=== PATIENT | female | born 1985 | race Caucasian/White ===

== ENCOUNTER 2023-10-20 15:02 | Inpatient (IN) ==
--- NOTE | 2023-10-20 15:30 | Emergency Department Note ---
Impression & Plan Pneumonia, Mycoplasma infection, Rhinovirus infection, Dehydration ED Provider Note NAME: HUMPHREY RICHEY AGE: 38 SEX: F : 1985 ARRIVES VIA: Walk-In INFORMANT: Patient ED PROVIDER(S): Memo Alexandra MD CHIEF COMPLAINT: Feverish, cough, chest pain, shortness of breath. PLAN: Disposition: Admit MEDICAL DECISION MAKING: The patient is a pleasant 38-year-old woman who presents to the emergency department via walk-in accompanied by her for evaluation of ongoing cough, congestion shortness of breath where she had an outpatient chest x-ray performed today demonstrating left lower lobe pneumonia in the setting of having upper respiratory symptoms that began approximately 10 days ago where she was subsequently seen at [facility] and treated with Augmentin but due to feeling continued cough, congestion and shortness of breath and feverishness returned today and had outpatient x-ray demonstrating pneumonia. Patient reports that before she was able to hear back about the results she felt she needed additional help in presented for evaluation. She reports some nausea but denies vomiting other than attempts to relieve her nausea by attempting to make herself vomit. She reports diarrhea that began after starting her antibiotic. She denies smoking but does vape regularly but has not done this for the past week. Patient and her are visiting [employer] from their home in [place] and was scheduled to fly home this weekend. On evaluation the patient is uncomfortable, with temperature of 37.6, heart rate in the 100s and blood pressure 90s-110s/40s-60s. O2 saturation was 93% on room air and greater. She appears clinically dry. She has boggy nasal turbinates. She has wheezes and rhonchi of the left lower and posterior lung stephens. EKG without overt acute ischemia. WBC within normal limits. There is mild neutrophilia and mild lymphopenia. There is no left shift. H/H 11.3/33.5 without prior for comparison. Chemistry without metabolic acidosis. Potassium 3.3 electrolytes otherwise unremarkable. LFTs unremarkable. High-sensitivity troponin 3.5, within normal limits. Lipase is normal. Procalcitonin is not elevated. UA without evidence of infection. Trace ketones noted consistent with patient's clinically dry appearance. Respiratory BioFire was positive for both enterovirus/rhinovirus as well as Mycoplasma pneumoniae. D-dimer was elevated at 1000 and so CTA of the chest was performed. CTA of the chest was negative for PE or acute aortic pathology. Further characterization of the patient's pneumonia is described with consolidations and reticular nodular densities in the left lower lobe and lingula consistent with pneumonia. Trace pleural effusion is seen. Upon evaluation the patient did feel improved following IV fluid ration with 2L NSS and 1L LR for total of 3 L IV fluid hydration (>30cc/kg), IV APAP, Toradol, Solu-Medrol, DuoNeb, guaifenesin, nasal saline. Heart rate had improved as well as blood pressure. Given the extent of the patient's lobar pneumonia in the setting of confirmed infection with mycoplasma pneumonia a the patient does agree with plan for admission for further management. Treatment was initiated for CAP with IV ceftriaxone and IV azithromycin following blood cultures. [facility] the patient for [facility]. Further management per admitting team. Triage Nursing notes reviewed and agree them. Prior/external medical records reviewed Vital Signs: reviewed Differential diagnosis: Reactive airway disease, pneumonia, pneumothorax, COPD, CHF, infections, cardiac ischemia, pulmonary embolism, musculoskeletal, gastrointestinal, as well as other pathologies. ER treatment provided: See below. Diagnostics interpreted by me: ECG: Sinus tachycardia, 111 bpm, no ectopy, no overt ST elevation or depression, QTc 416, QRS 76. Cardiac Monitoring: An order for continuous cardiac monitoring was placed and demonstrated sinus tachycardia, 111 bpm, no ectopy. Laboratory studies: See below Imaging studies: See below Consultation(s): [facility] will [facility] the patient for admission. HPI: The patient is a pleasant 38-year-old woman who presents to the emergency department via walk-in accompanied by her for evaluation of ongoing cough, congestion shortness of breath where she had an outpatient chest x-ray performed today demonstrating left lower lobe pneumonia in the setting of having upper respiratory symptoms that began approximately 10 days ago where she was subsequently seen at [facility] and treated with Augmentin but due to feeling continued cough, congestion and shortness of breath and feverishness returned today and had outpatient x-ray demonstrating pneumonia. Patient reports that before she was able to hear back about the results she felt she needed additional help in presented for evaluation. She reports some nausea but denies vomiting other than attempts to relieve her nausea by attempting to make herself vomit. She reports diarrhea that began after starting her antibiotic. She denies smoking but does vape regularly but has not done this for the past week. Patient and her are visiting [employer] from their home in [place] and was scheduled to fly home this weekend. ROS: See above HPI for pertinent positives & negatives. A total of 10 systems reviewed and were otherwise negative. VITALS:See Below PHYSICAL EXAMINATION: GENERAL: Awake, alert, uncomfortable-appearing, in no distress HENT: Normocephalic, atraumatic. Boggy nasal turbinates. Oropharynx with dry mucous membranes and otherwise unremarkable. EYES: Normal conjunctiva. Sclera non-icteric. NECK: Supple. No nuchal rigidity. FROM. No JVD. RESPIRATORY: Wheezes and rhonchi of the left lower and posterior lung stephens. CARDIAC: Tachycardic rate, normal rhythm. Extremities warm and well perfused. Pulses equal. ABDOMEN: Soft, non-distended. No tenderness to palpation. No rebound or guarding. No masses. MUSCULOSKELETAL: Chest examination reveals no tenderness. The back is symmetrical on inspection without obvious abnormality. There is no CVA tenderness to palpation. No joint edema. LOWER EXTREMITIES: Calves are equal size bilaterally and non-tender. No edema. No discoloration. NEURO: Normal sensorium. No sensory or motor deficits noted. SKIN: No rash or jaundice noted. ED COURSE: Critical Care: I have personally spent greater than 35 minutes of critical care time in the direct management of this patient. This includes bedside care, interpretation of diagnostic studies, and testing, discussion with consultants, patient, and family members, and other required patient management activities. This 35 minutes is in excess of all separately billable procedures. Memo Alexandra MD Past Med/Surg History Problem List (Updated 10/20/23 @ 22:23 by Memo Alexandra MD) Dehydration (Acute) Rhinovirus infection (Acute) Mycoplasma infection (Acute) Pneumonia (Acute) Social History (Updated 10/16/23 @ 11:11 by Bella Serrano LPN) Smoking Status: Former smoker Tobacco Type: E-cigarettes / Vaping Feels Safe at Home: Yes Allergies Allergies Allergy/AdvReac Type Severity Reaction Status Date / Time No Known Allergies Allergy Verified 10/16/23 11:10 Home Meds Home Medications Medication Instructions Recorded Confirmed sertraline 25 mg tablet (Zoloft) 25 mg PO DAILY 10/16/23 10/16/23 Previous Rx's Medication Instructions Recorded amoxicillin 875 mg-potassium 1 tab PO BID #20 tabs 10/16/23 clavulanate 125 mg tablet azithromycin 250 mg tablet See Rx Instructions PO .COMPLEX #6 10/20/23 tabs Results & Data (ED) Vital Signs Vital Signs - 24 hr 10/20/23 15:07 10/20/23 16:23 10/20/23 16:45 Temperature 37.6 C H 39.3 C H Temperature Source Temporal Artery Scan Oral Pulse Rate 117 H 117 H Pulse Rate [Apical] 109 H Pulse Rhythm [Apical] Regular Pulse Strength [Apical] Respiratory Rate 18 20 Respiratory Effort / Characteristics Non-Labored Respiratory Depth Normal Normal Respiratory Pattern Regular Blood Pressure 114/73 Blood Pressure [Left Arm] 105/49 L Blood Pressure Mean 86 Blood Pressure Mean [Left Arm] 67 Pulse Oximetry 93 96 Oxygen Delivery Method Room Air Room Air Sepsis Recent Fever Within 48 Hours No Sepsis New/Unexplained Change in Mental Status N/A Sepsis Action Taken by Nursing No Action Required 10/20/23 17:12 10/20/23 18:05 10/20/23 19:01 Temperature 38.4 C H 37.6 C H Temperature Source Oral Oral Pulse Rate Pulse Rate [Apical] 105 H 98 H 94 H Pulse Rhythm [Apical] Regular Regular Regular Pulse Strength [Apical] Respiratory Rate 20 18 18 Respiratory Effort / Characteristics Non-Labored Respiratory Depth Normal Normal Normal Respiratory Pattern Blood Pressure Blood Pressure [Left Arm] 88/47 L 83/62 L 91/64 L Blood Pressure Mean Blood Pressure Mean [Left Arm] 60 69 73 Pulse Oximetry 94 93 95 Oxygen Delivery Method Room Air Room Air Sepsis Recent Fever Within 48 Hours Sepsis New/Unexplained Change in Mental Status Sepsis Action Taken by Nursing 10/20/23 19:46 10/20/23 20:15 10/20/23 20:40 Temperature 37.0 C Temperature Source Oral Pulse Rate 79 Pulse Rate [Apical] 84 81 Pulse Rhythm [Apical] Regular Regular Pulse Strength [Apical] Normal Respiratory Rate 18 18 Respiratory Effort / Characteristics Non-Labored Non-Labored Respiratory Depth Normal Normal Respiratory Pattern Blood Pressure Blood Pressure [Left Arm] 103/69 95/60 L Blood Pressure Mean Blood Pressure Mean [Left Arm] 80 71 Pulse Oximetry 96 95 Oxygen Delivery Method Room Air Sepsis Recent Fever Within 48 Hours Sepsis New/Unexplained Change in Mental Status Sepsis Action Taken by Nursing Laboratory Data 10/20/23 15:51 10/20/23 15:51 Lab Results 10/20/23 10/20/23 10/20/23 Range/Units 15:41 15:51 17:05 WBC 8.36 (4.8-10.8) K/ul RBC 3.89 L (4.20-5.40) M/uL Hgb 11.3 L (12.0-16.0) g/dl Hct 33.5 L (37.0-47.0) % MCV 86.1 (80.0-100.0) fL MCH 29.0 (25.0-34.0) pg MCHC 33.7 (32.0-36.0) g/dL RDW Std Deviation 38.7 (36.4-46.3) fL RDW Coeff of Mary 12.3 (11.5-14.5) % Plt Count 315 (130-400) K/uL MPV 9.4 (9.4-12.4) fL Immature Gran % (Auto) 0.4 % Neut % (Auto) 80.9 % Lymph % (Auto) 12.1 % [place] % (Auto) 6.3 % Eos % (Auto) 0.1 % Baso % (Auto) 0.2 % Neut # (Auto) 6.76 H (1.40-6.50) K/uL Lymph # (Auto) 1.01 L (1.20-3.40) K/uL [place] # (Auto) 0.53 (0.11-0.59) K/uL Eos # (Auto) 0.01 (0.00-0.50) K/uL Baso # (Auto) 0.02 (0.00-0.20) K/uL Immature Gran # (Auto) 0.03 (0.01-0.20) K/uL D-Dimer 1010 H* (0-500) ug/L FEU Sodium 136 (136-145) mmol/L Potassium 3.3 L (3.5-5.1) mmol/L Chloride 99 (98-107) mmol/L Carbon Dioxide 27 (21-32) mmol/L Anion Gap 10 (3-11) BUN 15 (6-23) mg/dl Creatinine 0.74 (0.6-1.2) mg/dl Est Cr Clr Drug Dosing 101.4 ml/min Est GFR ( Amer) 120.0 ml/min Est GFR (Non-Af Amer) 103.5 ml/min BUN/Creatinine Ratio 20.3 H (10-20) Glucose 95 (70-99(Fasting)) mg/dl Lactate 1.0 (0.4-2.0) mmol/L Calcium 8.7 (8.6-10.3) mg/dl Magnesium 2.1 (1.7-2.4) mg/dl Total Bilirubin 0.5 (0.2-1.0) mg/dl Direct Bilirubin 0.1 (0-0.2) mg/dl AST 15 (13-39) U/L ALT 16 (7-52) U/L Alkaline Phosphatase 38 (34-104) U/L Troponin I High Sens 3.5 (0-14) pg/ml Total Protein 7.5 (6.0-8.3) gm/dl Albumin 4.0 (3.4-5.0) gm/dl Lipase 44 (11-82) U/L Procalcitonin 0.05 (0-0.5) ng/ml Urine Color Yellow Urine Appearance Cloudy A (Clear) Urine pH 6.0 (4.5-7.5) Ur Specific [place] 1.021 (1.000-1.030) Urine Protein 1+ H (Negative) Urine Glucose (UA) Negative (Negative) Urine Ketones Trace H (Negative) Urine Blood Negative (Negative) Urine Nitrite Negative (Negative) Urine Bilirubin Negative (Negative) Urine Urobilinogen Negative (Negative) Ur Leukocyte Esterase Trace H (Negative) Urine WBC (Auto) 0-5 (0-5) /hpf Urine RBC (Auto) 3-5 H (0-2) /hpf U Hyaline Cast (Auto) 0-2 (0-2) /lpf U Epithel Cells (Auto) 11-20 H (0-2) /hpf Urine Bacteria (Auto) None Seen (None Seen) Nasal Screen MRSA (PCR) (Negative) Adenovirus (PCR) Not Detected (NotDetected) B. pertussis DNA (PCR) Not Detected (NotDetected) B.parapertussis DNA PCR Not Detected (NotDetected) C. pneumoniae DNA (PCR) Not Detected (NotDetected) Coronavirus OC43 (PCR) Not Detected (NotDetected) Coronavirus HKU1 (PCR) Not Detected (NotDetected) Coronavirus 229E (PCR) Not Detected (NotDetected) SARS-CoV-2 (PCR) Not Detected (NotDetected) Coronavirus NL63 (PCR) Not Detected (NotDetected) Human Metapneumovir PCR Not Detected (NotDetected) Influenza Type A (PCR) Not Detected (NotDetected) Influenza Type B (PCR) Not Detected (NotDetected) M. pneumoniae (PCR) DETECTED A (NotDetected) Parainfluenza 1 (PCR) Not Detected (NotDetected) Parainfluenza 2 (PCR) Not Detected (NotDetected) Parainfluenza 3 (PCR) Not Detected (NotDetected) Parainfluenza 4 (PCR) Not Detected (NotDetected) RSV (PCR) Not Detected (NotDetected) Entero/Rhino (PCR) DETECTED A (NotDetected) 10/20/23 Range/Units 20:15 WBC (4.8-10.8) K/ul RBC (4.20-5.40) M/uL Hgb (12.0-16.0) g/dl Hct (37.0-47.0) % MCV (80.0-100.0) fL MCH (25.0-34.0) pg MCHC (32.0-36.0) g/dL RDW Std Deviation (36.4-46.3) fL RDW Coeff of Mary (11.5-14.5) % Plt Count (130-400) K/uL MPV (9.4-12.4) fL Immature Gran % (Auto) % Neut % (Auto) % Lymph % (Auto) % [place] % (Auto) % Eos % (Auto) % Baso % (Auto) % Neut # (Auto) (1.40-6.50) K/uL Lymph # (Auto) (1.20-3.40) K/uL [place] # (Auto) (0.11-0.59) K/uL Eos # (Auto) (0.00-0.50) K/uL Baso # (Auto) (0.00-0.20) K/uL Immature Gran # (Auto) (0.01-0.20) K/uL D-Dimer (0-500) ug/L FEU Sodium (136-145) mmol/L Potassium (3.5-5.1) mmol/L Chloride (98-107) mmol/L Carbon Dioxide (21-32) mmol/L Anion Gap (3-11) BUN (6-23) mg/dl Creatinine (0.6-1.2) mg/dl Est Cr Clr Drug Dosing ml/min Est GFR ( Amer) ml/min Est GFR (Non-Af Amer) ml/min BUN/Creatinine Ratio (10-20) Glucose (70-99(Fasting)) mg/dl Lactate (0.4-2.0) mmol/L Calcium (8.6-10.3) mg/dl Magnesium (1.7-2.4) mg/dl Total Bilirubin (0.2-1.0) mg/dl Direct Bilirubin (0-0.2) mg/dl AST (13-39) U/L ALT (7-52) U/L Alkaline Phosphatase (34-104) U/L Troponin I High Sens (0-14) pg/ml Total Protein (6.0-8.3) gm/dl Albumin (3.4-5.0) gm/dl Lipase (11-82) U/L Procalcitonin (0-0.5) ng/ml Urine Color Urine Appearance (Clear) Urine pH (4.5-7.5) Ur Specific Martelle (1.000-1.030) Urine Protein (Negative) Urine Glucose (UA) (Negative) Urine Ketones (Negative) Urine Blood (Negative) Urine Nitrite (Negative) Urine Bilirubin (Negative) Urine Urobilinogen (Negative) Ur Leukocyte Esterase (Negative) Urine WBC (Auto) (0-5) /hpf Urine RBC (Auto) (0-2) /hpf U Hyaline Cast (Auto) (0-2) /lpf U Epithel Cells (Auto) (0-2) /hpf Urine Bacteria (Auto) (None Seen) Nasal Screen MRSA (PCR) Negative (Negative) Adenovirus (PCR) (NotDetected) B. pertussis DNA (PCR) (NotDetected) B.parapertussis DNA PCR (NotDetected) C. pneumoniae DNA (PCR) (NotDetected) Coronavirus OC43 (PCR) (NotDetected) Coronavirus HKU1 (PCR) (NotDetected) Coronavirus 229E (PCR) (NotDetected) SARS-CoV-2 (PCR) (NotDetected) Coronavirus NL63 (PCR) (NotDetected) Human Metapneumovir PCR (NotDetected) Influenza Type A (PCR) (NotDetected) Influenza Type B (PCR) (NotDetected) M. pneumoniae (PCR) (NotDetected) Parainfluenza 1 (PCR) (NotDetected) Parainfluenza 2 (PCR) (NotDetected) Parainfluenza 3 (PCR) (NotDetected) Parainfluenza 4 (PCR) (NotDetected) RSV (PCR) (NotDetected) Entero/Rhino (PCR) (NotDetected) Administered Medications Potassium Chloride/Sodium Chloride (Normal Saline W/20 Meq Kcl) 20 meq in 1,000 mls @ 100 mls/hr IV .Q10H ONE; Protocol Stop: 10/21/23 06:47 Last Admin: 10/20/23 21:19 Dose: 100 mls/hr Documented By: SAFIA Discontinued Medications Albuterol (Albut/Ipratrop 3mg/0.5mg Neb 3 Ml Vial) 3 ml NEB NOW STA; Protocol Stop: 10/20/23 15:39 Last Admin: 10/20/23 16:00 Dose: 3 ml Documented By: SAFIA Guaifenesin (Guaifenesin 600 Mg Tabcr) 1,200 mg PO NOW STA Stop: 10/20/23 15:37 Last Admin: 10/20/23 15:59 Dose: 1,200 mg Documented By: SAFIA Sodium Chloride (Nss) 1,000 mls @ 999 mls/hr IV .Q1H1M GREGOR Stop: 10/20/23 17:45 Last Infusion: 10/20/23 18:18 Dose: Infused Documented By: Admin: 10/20/23 16:48 Dose: 999 mls/hr Documented By: Infusion: 10/20/23 16:48 Dose: Infused Documented By: Admin: 10/20/23 15:59 Dose: 999 mls/hr Documented By: SAFIA Acetaminophen (Ofirmev) 1,000 mg in 100 mls @ 400 mls/hr IV NOW STA Stop: 10/20/23 15:50 Last Infusion: 10/20/23 16:51 Dose: Infused Documented By: Admin: 10/20/23 16:00 Dose: 400 mls/hr Documented By: SAFIA Azithromycin 500 mg/ Dextrose 255 mls @ 127.5 mls/hr IV NOW STA Stop: 10/20/23 19:15 Last Admin: 10/20/23 18:02 Dose: 127.5 mls/hr Documented By: SAFIA Lactated Ringer's (Lr) 1,000 mls @ 999 mls/hr IV .Q1H1M ONE Stop: 10/20/23 18:34 Last Infusion: 10/20/23 21:20 Dose: Infused Documented By: Admin: 10/20/23 18:03 Dose: 999 mls/hr Documented By: SAFIA Ioversol (Optiray 320 125ml) 119 ml IV ONCE ONE Stop: 10/20/23 18:48 Last Admin: 10/20/23 18:47 Dose: 119 ml Documented By: NISHI Ketorolac Tromethamine (Ketorolac Tromethamine 15 Mg/Ml Vial) 15 mg IV NOW STA Stop: 10/20/23 15:37 Last Admin: 10/20/23 16:00 Dose: 15 mg Documented By: SAFIA Methylprednisolone (Methylprednisolone 125 Mg/2 Ml Vial) 125 mg IV NOW STA Stop: 10/20/23 15:39 Last Admin: 10/20/23 16:00 Dose: 125 mg Documented By: SAFIA Ondansetron HCl (Ondansetron Inj 2 Mg/Ml 2 Ml Vial) 4 mg IV NOW STA Stop: 10/20/23 15:39 Last Admin: 10/20/23 16:00 Dose: 4 mg Documented By: SAFIA Potassium Chloride (Potassium Chloride Pwd 20 Meq Pack) 40 meq PO NOW STA Stop: 10/20/23 20:48 Last Admin: 10/20/23 21:19 Dose: 40 meq Documented By: SAFIA Sodium Chloride (Sodium Chloride 0.65% Na Soln 45 Ml ([place])) 2 sprays NA NOW ONE Stop: 10/20/23 15:39 Last Admin: 10/20/23 16:47 Dose: 2 sprays Documented By: SAFIA Imaging Data Radiologist's Impression: Chest CTA 10/20/23 18:31 Exam(s): CTA CHEST IV Amt: 119ml optiray 320 EXAM: CT Angiography Chest With Intravenous Contrast CLINICAL HISTORY: Reason for exam: tachy, hypoxic, PNA, elevated dimer, r/o PE. TECHNIQUE: Axial computed tomographic angiography images of the chest with intravenous contrast. CTDI is 21.58 mGy and DLP is 605.2 mGy-cm. Automated exposure control was utilized for the study. A dose lowering technique was utilized adhering to the principles of ALARA. MIP reconstructed images were created and reviewed. COMPARISON: None FINDINGS: Pulmonary arteries: Unremarkable. No pulmonary embolus identified. Aorta: No acute findings. No aortic aneurysm or dissection. Lungs: Consolidations and reticulonodular densities in the left lower lobe as well as reticulonodular densities in the lingula, concerning for pneumonia. Pleural space: Trace left pleural effusion. No pneumothorax. Heart: Unremarkable. No cardiomegaly. No significant pericardial effusion. No evidence of RV dysfunction. Mediastinum: Nonspecific mildly prominent mediastinal and left hilar lymph nodes. Bones/joints: No acute fracture. No dislocation. Soft tissues: Unremarkable. Lymph nodes: See above. IMPRESSION: 1. No pulmonary embolus identified. 2. No aortic aneurysm or dissection. 3. Consolidations and reticulonodular densities in the left lower lobe as well as reticulonodular densities in the lingula, concerning for pneumonia. 4. Trace left pleural effusion. Electronically signed by: Sd Small M.D. 10/20/23 19:27 PM Discharge Plan Visit Data Chief Complaint: Illness Stated Complaint: LT YIFAN PNEMONIA ED Provider: Memo Alexandra Discharge Problem: Pneumonia, Mycoplasma infection, Rhinovirus infection, Dehydration Forms Stand Alone Forms: [facility] Prescriptions Prescriptions: No Action azithromycin 250 mg tablet See Rx Instructions PO .COMPLEX Qty: 6 0RF Rx Instructions: For 250 mg dose pack: take 500 mg today (day 1), then 250 mg for 4 days (days 2-5) PO sertraline [Zoloft] 25 mg tablet 25 mg PO DAILY amoxicillin-pot clavulanate 875-125 mg tablet 1 tab PO BID Qty: 20 0RF Referrals Referrals: PCP,NO [Primary Care Provider] - Discharge Problem: Pneumonia Qualifiers: Pneumonia type: due to Mycoplasma pneumoniae Laterality: left Lung location: l ower lobe of lung Qualified Code(s): J15.7 - Pneumonia due to Mycoplasma pneumoniae
[2023-10-20] MEDS: guaiFENesin 600 MG TABCR PO STA (15:59)
[2023-10-20] MEDS: SODIUM CHLORIDE 0.9% 1,000 ML IV SCH (15:59)
[2023-10-20] MEDS: methylPREDNISolone 125 MG/2 ML VIAL IV STA (16:00)
[2023-10-20] MEDS: ALBUT/IPRATROP 3MG/0.5MG NEB 3 ML VIAL NEB STA (16:00)
[2023-10-20] MEDS: ACETAMINOPHEN 1,000 MG/100 ML VIAL IV STA (16:00)
[2023-10-20] MEDS: KETOROLAC TROMETHAMINE 15 MG/ML VIAL IV STA (16:00)
[2023-10-20] MEDS: ONDANSETRON INJ 2 MG/ML 2 ML VIAL IV STA (16:00)
[2023-10-20 16:05] LABS: Basophils # (auto) 0.02 K/uL (0.00-0.20); Basophils % (auto) 0.2 %; Eosinophils # (auto) 0.01 K/uL (0.00-0.50); Eosinophils % (auto) 0.1 %; Hematocrit (blood only) 33.5 % (37.0-47.0); Hemoglobin 11.3 g/dl (12.0-16.0); Immature Granulocytes # (auto) 0.03 K/uL (0.01-0.20); Immature Granulocytes % (auto) 0.4 %; Lymphocytes # (auto) 1.01 K/uL (1.20-3.40); Lymphocytes % (auto) 12.1 %; Mean Corpuscular Hgb Conc 33.7 g/dL (32.0-36.0); Mean Corpuscular Volume 86.1 fL (80.0-100.0); Mean Platelet Volume 9.4 fL (9.4-12.4); Monocytes # (auto) 0.53 K/uL (0.11-0.59); Monocytes % (auto) 6.3 %; Neutrophils # (auto) 6.76 K/uL (1.40-6.50); Neutrophils % (auto) 80.9 %; Platelet Count 315 K/uL (130-400); RDW Coefficient of Variation 12.3 % (11.5-14.5); RDW Standard Deviation 38.7 fL (36.4-46.3); Red Blood Count 3.89 M/uL (4.20-5.40); White Blood Count 8.36 K/ul (4.8-10.8)
[2023-10-20 16:24] LABS: BUN Creatinine Ratio 20.3 (10-20); Bilirubin Direct 0.1 mg/dl (0-0.2); Bilirubin,Total 0.5 mg/dl (0.2-1.0); Calcium 8.7 mg/dl (8.6-10.3); Creatinine Clr Calc Pharmacy 101.4 ml/min; Est GFR (Non-African American) 103.5 ml/min; Magnesium 2.1 mg/dl (1.7-2.4); Potassium 3.3 mmol/L (3.5-5.1); Total Protein 7.5 gm/dl (6.0-8.3)
[2023-10-20 16:30] LABS: Troponin I High Sensitivity 3.5 pg/ml (0-14)
[2023-10-20] MEDS: SODIUM CHLORIDE 0.65% NA SOLN 45 ML (OCEAN) ONE (16:47)
[2023-10-20 16:58] LABS: Adenovirus PCR Not Detected (NotDetected); Bordetella parapertussis PCR Not Detected (NotDetected); Bordetella pertussis PCR Not Detected (NotDetected); Chlamydia pneumoniae PCR Not Detected (NotDetected); Coronavirus 229E PCR Not Detected (NotDetected); Coronavirus CoV-2 (COVID19)PCR Not Detected (NotDetected); Coronavirus HKU1 PCR Not Detected (NotDetected); Coronavirus NL63 PCR Not Detected (NotDetected); Coronavirus OC43PCR Not Detected (NotDetected); Human Metapneumovirus PCR Not Detected (NotDetected); Influenza A PCR Not Detected (NotDetected); Influenza B PCR Not Detected (NotDetected); Mycoplasma pneumoniae PCR DETECTED (NotDetected); Parainfluenza Virus 1 PCR Not Detected (NotDetected); Parainfluenza Virus 2 PCR Not Detected (NotDetected); Parainfluenza Virus 3 PCR Not Detected (NotDetected); Parainfluenza Virus 4 PCR Not Detected (NotDetected); Respiratory Syncytial VirusPCR Not Detected (NotDetected); Rhinovirus/Enterovirus PCR DETECTED (NotDetected)
[2023-10-20 17:36] LABS: Appearance Urine Cloudy (Clear); Bacteria Urine Automated None Seen (None Seen); Bilirubin Urine Negative (Negative); Blood Urine Negative (Negative); Cast Urine Automated 0-2 /lpf (0-2); Color Urine Yellow; Glucose Urine UA Negative (Negative); Ketones Urine Trace (Negative); Leukocyte Esterase Urine Trace (Negative); Nitrite Urine Negative (Negative); Protein Urine 1+ (Negative); Specific Gravity Urine 1.021 (1.000-1.030); Urobilinogen Urine Negative (Negative); WBC Urine Automated 0-5 /hpf (0-5)
[2023-10-20] MEDS: AZITHROMYCIN 500 MG in DEXTROSE 5% 250 ML IV STA (18:02)
[2023-10-20] MEDS: LACTATED RINGER'S 1,000 ML IV ONE (18:03)
[2023-10-20 18:30] LABS: D Dimer 1010 ug/L FEU (0-500)
[2023-10-20] MEDS: OPTIRAY 320 125ml IV ONE (18:47)
--- NOTE | 2023-10-20 19:27 | CT Scan Report ---
Exam(s): CTA CHEST IV Amt: 119ml optiray 320 EXAM: CT Angiography Chest With Intravenous Contrast CLINICAL HISTORY: Reason for exam: tachy, hypoxic, PNA, elevated dimer, r/o PE. TECHNIQUE: Axial computed tomographic angiography images of the chest with intravenous contrast. CTDI is 21.58 mGy and DLP is 605.2 mGy-cm. Automated exposure control was utilized for the study. A dose lowering technique was utilized adhering to the principles of ALARA. MIP reconstructed images were created and reviewed. COMPARISON: None FINDINGS: Pulmonary arteries: Unremarkable. No pulmonary embolus identified. Aorta: No acute findings. No aortic aneurysm or dissection. Lungs: Consolidations and reticulonodular densities in the left lower lobe as well as reticulonodular densities in the lingula, concerning for pneumonia. Pleural space: Trace left pleural effusion. No pneumothorax. Heart: Unremarkable. No cardiomegaly. No significant pericardial effusion. No evidence of RV dysfunction. Mediastinum: Nonspecific mildly prominent mediastinal and left hilar lymph nodes. Bones/joints: No acute fracture. No dislocation. Soft tissues: Unremarkable. Lymph nodes: See above. IMPRESSION: 1. No pulmonary embolus identified. 2. No aortic aneurysm or dissection. 3. Consolidations and reticulonodular densities in the left lower lobe as well as reticulonodular densities in the lingula, concerning for pneumonia. 4. Trace left pleural effusion. Electronically signed by: Sd Small M.D. 10/20/23 19:27 PM
[2023-10-20] MEDS: NSS + 20MEQ KCL 20 MEQ/1,000 ML BAG IV ONE (21:19)
[2023-10-20] MEDS: POTASSIUM CHLORIDE PWD 20 MEQ PACK PO STA (21:19)
--- NOTE | 2023-10-20 21:35 | History & Physical Report ---
Date of Service October 20, 2023 Assessment & Plan (1) Sepsis: Plan: Secondary to community-acquired pneumonia Mycoplasma pneumonia and entero/rhinovirus on serology Hypokalemia secondary to illness mood disorder, stable, patient only takes medication as needed chronic anemia, hemoglobin at baseline Medical telemetry CS, Ceftriaxone, Azithromycin Replace potassium DVT prophylaxis. Lovenox subcu Full code Text document was generated using [email or web address] voice recognition software. It may contain grammatical or spelling errors. Kindly contact undersigned for clarification of any documentation item in question. History of Present Illness Chief Complaint: Worsening cough, SOB symptoms Primary Care Provider: Dr. Simon Varela of [place], [place] History obtained from patient and records. Medical history significant for mood disorder, chronic anemia (baseline hemoglobin of 11 as per patient). Patient is a resident of [place], [place] who has been in town since last week to visit her 's local family. Patient started feeling sick after leaving [place] about 10 days ago. Some sinus congestion later followed by dry cough symptoms. Admits to occasional coughing with meals/water intake. Possible sick contacts at home. Patient's children 3 children contracted walking pneumonia before leaving [place] for which azithromycin was prescribed by the hospital nurse liaison. Patient seen at [facility] urgent care clinic last week. COVID and flu swabs were negative. Augmentin course prescribed for suspected sinobronchitis. Worsening cough and symptoms despite compliance with antibiotic Rx. Poor appetite. Azithromycin and neb treatment administered at the ER. 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 Allergies Allergy/AdvReac Type Severity Reaction Status Date / Time No Known Allergies Allergy Verified 10/16/23 11:10 Home Medications Medication Instructions Recorded Confirmed Type amoxicillin 875 mg-potassium 1 tab PO BID #20 tabs 10/16/23 10/16/23 Rx clavulanate 125 mg tablet sertraline 25 mg tablet (Zoloft) 25 mg PO DAILY 10/16/23 10/16/23 History azithromycin 250 mg tablet See Rx Instructions PO .COMPLEX #6 10/20/23 Rx tabs Past Med/Surg History Problem List (Updated 10/21/23 @ 05:17 by Ilia Kingston MD) Sepsis Dehydration (Acute) Rhinovirus infection (Acute) Mycoplasma infection (Acute) Pneumonia (Acute) Social History (Updated 10/16/23 @ 11:11 by Bella Serrano LPN) Smoking Status: Former smoker Tobacco Type: E-cigarettes / Vaping Second Hand Exposure: No; Do You Dip or Chew Tobacco: No; Tobacco Cessation Education Requested by Patient: No Hx Alcohol Use: No Hx Substance Use: No Preferred Language: Spanish Communication Ability: Effective Business Systems Architect Required: No Beliefs That Will Affect Care: None Current Living Situation: Spouse Other Information That Helps Us Care for You: No Feels Safe at Home: Yes Safety Concerns: Feels Safe At This Time Assistive Devices: None Review of Systems Review of Systems: As per HPI, all other systems reviewed and negative Physical Exam Physical Exam: GENERAL: Comfortable, no respiratory distress SKIN: Pallor, warm HEENT: Pale palpebral conjunctivae, no ptosis, dry buccal mucosa NECK : Supple, no tenderness CHEST : Decreased breath sounds, no tenderness HEART : RRR, no obvious murmurs ABDOMEN: Some distention, nontender EXTREMITIES : No LE swelling/tenderness, no other conspicuous deformities noted NEUROLOGIC : Coherent, no facial asymmetry, no other gross focality Results & Data Results & Data Vital Signs (Past 12 Hours) Vital Signs Temp Pulse Pulse Resp BP BP Pulse Ox 10/20/23 20:40 37.0 C 81 18 95/60 L 95 10/20/23 20:15 79 10/20/23 19:46 84 18 103/69 96 10/20/23 19:01 94 H 18 91/64 L 95 10/20/23 18:05 37.6 C H 98 H 18 83/62 L 93 10/20/23 17:12 38.4 C H 105 H 20 88/47 L 94 10/20/23 16:45 39.3 C H 109 H 20 105/49 L 96 10/20/23 16:23 117 H 10/20/23 15:07 37.6 C H 117 H 18 114/73 93 O2 Del Method 10/20/23 20:40 Room Air 10/20/23 20:15 10/20/23 19:46 10/20/23 19:01 10/20/23 18:05 Room Air 10/20/23 17:12 Room Air 10/20/23 16:45 Room Air 10/20/23 16:23 10/20/23 15:07 Room Air Laboratory Results Laboratory Results WBC 8.36 K/ul (4.8-10.8) 10/20/23 15:51 RBC 3.89 M/uL (4.20-5.40) L 10/20/23 15:51 Hgb 11.3 g/dl (12.0-16.0) L 10/20/23 15:51 Hct 33.5 % (37.0-47.0) L 10/20/23 15:51 MCV 86.1 fL (80.0-100.0) 10/20/23 15:51 MCH 29.0 pg (25.0-34.0) 10/20/23 15:51 MCHC 33.7 g/dL (32.0-36.0) 10/20/23 15:51 RDW Std Deviation 38.7 fL (36.4-46.3) 10/20/23 15:51 RDW Coeff of Mary 12.3 % (11.5-14.5) 10/20/23 15:51 Plt Count 315 K/uL (130-400) 10/20/23 15:51 MPV 9.4 fL (9.4-12.4) 10/20/23 15:51 Immature Gran % (Auto) 0.4 % 10/20/23 15:51 Neut % (Auto) 80.9 % 10/20/23 15:51 Lymph % (Auto) 12.1 % 10/20/23 15:51 [place] % (Auto) 6.3 % 10/20/23 15:51 Eos % (Auto) 0.1 % 10/20/23 15:51 Baso % (Auto) 0.2 % 10/20/23 15:51 Neut # (Auto) 6.76 K/uL (1.40-6.50) H 10/20/23 15:51 Lymph # (Auto) 1.01 K/uL (1.20-3.40) L 10/20/23 15:51 [place]alle # (Auto) 0.53 K/uL (0.11-0.59) 10/20/23 15:51 Eos # (Auto) 0.01 K/uL (0.00-0.50) 10/20/23 15:51 Baso # (Auto) 0.02 K/uL (0.00-0.20) 10/20/23 15:51 Immature Gran # (Auto) 0.03 K/uL (0.01-0.20) 10/20/23 15:51 D-Dimer 1010 ug/L FEU (0-500) H* 10/20/23 15:51 Sodium 136 mmol/L (136-145) 10/20/23 15:51 Potassium 3.3 mmol/L (3.5-5.1) L 10/20/23 15:51 Chloride 99 mmol/L (98-107) 10/20/23 15:51 Carbon Dioxide 27 mmol/L (21-32) 10/20/23 15:51 Anion Gap 10 (3-11) 10/20/23 15:51 BUN 15 mg/dl (6-23) 10/20/23 15:51 Creatinine 0.74 mg/dl (0.6-1.2) 10/20/23 15:51 Est Cr Clr Drug Dosing 101.4 ml/min 10/20/23 15:51 Est GFR ( Amer) 120.0 ml/min 10/20/23 15:51 Est GFR (Non-Af Amer) 103.5 ml/min 10/20/23 15:51 BUN/Creatinine Ratio 20.3 (10-20) H 10/20/23 15:51 Glucose 95 mg/dl (70-99(Fasting)) 10/20/23 15:51 Lactate 1.0 mmol/L (0.4-2.0) 10/20/23 15:51 Calcium 8.7 mg/dl (8.6-10.3) 10/20/23 15:51 Magnesium 2.1 mg/dl (1.7-2.4) 10/20/23 15:51 Total Bilirubin 0.5 mg/dl (0.2-1.0) 10/20/23 15:51 Direct Bilirubin 0.1 mg/dl (0-0.2) 10/20/23 15:51 AST 15 U/L (13-39) 10/20/23 15:51 ALT 16 U/L (7-52) 10/20/23 15:51 Alkaline Phosphatase 38 U/L (34-104) 10/20/23 15:51 Troponin I High Sens 3.5 pg/ml (0-14) 10/20/23 15:51 Total Protein 7.5 gm/dl (6.0-8.3) 10/20/23 15:51 Albumin 4.0 gm/dl (3.4-5.0) 10/20/23 15:51 Lipase 44 U/L (11-82) 10/20/23 15:51 Procalcitonin 0.05 ng/ml (0-0.5) 10/20/23 15:51 Urine Color Yellow 10/20/23 17:05 Urine Appearance Cloudy (Clear) A 10/20/23 17:05 Urine pH 6.0 (4.5-7.5) 10/20/23 17:05 Ur Specific [place] 1.021 (1.000-1.030) 10/20/23 17:05 Urine Protein 1+ (Negative) H 10/20/23 17:05 Urine Glucose (UA) Negative (Negative) 10/20/23 17:05 Urine Ketones Trace (Negative) H 10/20/23 17:05 Urine Blood Negative (Negative) 10/20/23 17:05 Urine Nitrite Negative (Negative) 10/20/23 17:05 Urine Bilirubin Negative (Negative) 10/20/23 17:05 Urine Urobilinogen Negative (Negative) 10/20/23 17:05 Ur Leukocyte Esterase Trace (Negative) H 10/20/23 17:05 Urine WBC (Auto) 0-5 /hpf (0-5) 10/20/23 17:05 Urine RBC (Auto) 3-5 /hpf (0-2) H 10/20/23 17:05 U Hyaline Cast (Auto) 0-2 /lpf (0-2) 10/20/23 17:05 U Epithel Cells (Auto) 11-20 /hpf (0-2) H 10/20/23 17:05 Urine Bacteria (Auto) None Seen (None Seen) 10/20/23 17:05 Adenovirus (PCR) Not Detected (NotDetected) 10/20/23 15:41 B. pertussis DNA (PCR) Not Detected (NotDetected) 10/20/23 15:41 B.parapertussis DNA PCR Not Detected (NotDetected) 10/20/23 15:41 C. pneumoniae DNA (PCR) Not Detected (NotDetected) 10/20/23 15:41 Coronavirus OC43 (PCR) Not Detected (NotDetected) 10/20/23 15:41 Coronavirus HKU1 (PCR) Not Detected (NotDetected) 10/20/23 15:41 Coronavirus 229E (PCR) Not Detected (NotDetected) 10/20/23 15:41 SARS-CoV-2 (PCR) Not Detected (NotDetected) 10/20/23 15:41 Coronavirus NL63 (PCR) Not Detected (NotDetected) 10/20/23 15:41 Human Metapneumovir PCR Not Detected (NotDetected) 10/20/23 15:41 Influenza Type A (PCR) Not Detected (NotDetected) 10/20/23 15:41 Influenza Type B (PCR) Not Detected (NotDetected) 10/20/23 15:41 M. pneumoniae (PCR) DETECTED (NotDetected) A 10/20/23 15:41 Parainfluenza 1 (PCR) Not Detected (NotDetected) 10/20/23 15:41 Parainfluenza 2 (PCR) Not Detected (NotDetected) 10/20/23 15:41 Parainfluenza 3 (PCR) Not Detected (NotDetected) 10/20/23 15:41 Parainfluenza 4 (PCR) Not Detected (NotDetected) 10/20/23 15:41 RSV (PCR) Not Detected (NotDetected) 10/20/23 15:41 Entero/Rhino (PCR) DETECTED (NotDetected) A 10/20/23 15:41 Impressions Chest CTA 10/20/23 18:31 Exam(s): CTA CHEST IV Amt: 119ml optiray 320 EXAM: CT Angiography Chest With Intravenous Contrast CLINICAL HISTORY: Reason for exam: tachy, hypoxic, PNA, elevated dimer, r/o PE. TECHNIQUE: Axial computed tomographic angiography images of the chest with intravenous contrast. CTDI is 21.58 mGy and DLP is 605.2 mGy-cm. Automated exposure control was utilized for the study. A dose lowering technique was utilized adhering to the principles of ALARA. MIP reconstructed images were created and reviewed. COMPARISON: None FINDINGS: Pulmonary arteries: Unremarkable. No pulmonary embolus identified. Aorta: No acute findings. No aortic aneurysm or dissection. Lungs: Consolidations and reticulonodular densities in the left lower lobe as well as reticulonodular densities in the lingula, concerning for pneumonia. Pleural space: Trace left pleural effusion. No pneumothorax. Heart: Unremarkable. No cardiomegaly. No significant pericardial effusion. No evidence of RV dysfunction. Mediastinum: Nonspecific mildly prominent mediastinal and left hilar lymph nodes. Bones/joints: No acute fracture. No dislocation. Soft tissues: Unremarkable. Lymph nodes: See above. IMPRESSION: 1. No pulmonary embolus identified. 2. No aortic aneurysm or dissection. 3. Consolidations and reticulonodular densities in the left lower lobe as well as reticulonodular densities in the lingula, concerning for pneumonia. 4. Trace left pleural effusion. Electronically signed by: Sd Small M.D. 10/20/23 19:27 PM Diagnostic Findings EKG as per my interpretation :Rate 110, sinus tachycardia, LAD, LAFB, T wave abnormalities inferior leads
[2023-10-20] MEDS ORDERED: PROMETHAZINE HCL 6.25 MG in SODIUM CHLORIDE 0.9% 50 ML IV PRN (21:40)
[2023-10-20] MEDS ORDERED: KETOROLAC TROMETHAMINE 15 MG/ML VIAL IV PRN (21:40)
[2023-10-20] MEDS ORDERED: ACETAMINOPHEN 325 MG TAB PO PRN (21:40)
[2023-10-20] MEDS: cefTRIAXone SODIUM 2,000 MG/50 ML BAG IV SCH (22:38)
[2023-10-21] MEDS: ALBUT/IPRATROP 3MG/0.5MG NEB 3 ML VIAL NEB PRN (07:03)
--- NOTE | 2023-10-21 09:01 | Hospitalist Progress Note ---
Date of Service October 21, 2023 Assessment & Plan (1) Sepsis: Plan Pt is a 38yoF with PMhx significant for mood disorder, chronic anemia (baseline hemoglobin of 11 as per patient) admitted with community acquired pneumonia. Sepsis, POA Community Acquired Pneumonia Pt tachycardic and febrile on admission, infectious source pulmonary No increased oxygen requirement Hypotensive Chest XRAY noting LLL pneumonia Chest CTA noting consolidation in the lingula and LLL with left pleural effusion Serology positive for Mycoplasma pneumoniae and enterovirus/rhinovirus Was started on rocephin and azithromycin Pulmonology consulted, appreciate recs -changed antibiotics to levofloxacin to be used for 7 days, QTc 416 at the time of presentation -added hypertonic saline nebulized with flutter valve to help get sputum cultures Hypokalemia K 3.3 Replete as needed Elevated D-dimer D dimer elevated on admission CTA chest with no PE but notes pneumonia chronic anemia Hgb 11.3 AM anemia panel mood disorder stable patient only takes medication as needed Diet: regular DVT prophylaxis: Lovenox subcu Dispo: Home once medically stable Admission and Anticipated Discharge Date Admission Date: October 20, 2023 Subjective states that she still feels like she can't take a deep breath. Denies SOB per se or fevers From out of town Review of Systems Review of Systems: All systems reviewed & are unremarkable except as noted in Subjective Physical Exam Physical Exam: General: Alert, oriented. No acute distress Skin: No noted rashes or bruises Psych: Appropriate mood and affect Neuro: No gross deficits HEENT: NC/AT CV: RRR Resp: Breath sounds decreased on the left, no increased effort of breathing. Abdomen:Soft, nontender Extremities: No edema in lower extremities bilaterally. Results & Data Results & Data Vital Signs (Past 12 Hours) Vital Signs Temp Pulse Pulse Pulse Resp BP BP 10/21/23 07:30 36.8 C 54 L 18 98/65 L 10/21/23 07:03 87 20 10/21/23 03:32 36.3 C L 59 L 18 112/79 10/21/23 00:04 80 10/20/23 23:37 10/20/23 23:37 10/20/23 23:37 36.8 C 91 H 18 95/61 L 10/20/23 22:43 36.9 C 78 18 103/72 10/20/23 22:00 85 18 103/72 Pulse Ox O2 Del Method 10/21/23 07:30 94 Room Air 10/21/23 07:03 95 Room Air 10/21/23 03:32 93 Room Air 10/21/23 00:04 10/20/23 23:37 Room Air 10/20/23 23:37 Room Air 10/20/23 23:37 Room Air 10/20/23 22:43 93 Room Air 10/20/23 22:00 94 Room Air Diagnostic Findings Chest CTA 10/20/23 18:31 Exam(s): CTA CHEST IV Amt: 119ml optiray 320 EXAM: CT Angiography Chest With Intravenous Contrast CLINICAL HISTORY: Reason for exam: tachy, hypoxic, PNA, elevated dimer, r/o PE. TECHNIQUE: Axial computed tomographic angiography images of the chest with intravenous contrast. CTDI is 21.58 mGy and DLP is 605.2 mGy-cm. Automated exposure control was utilized for the study. A dose lowering technique was utilized adhering to the principles of ALARA. MIP reconstructed images were created and reviewed. COMPARISON: None FINDINGS: Pulmonary arteries: Unremarkable. No pulmonary embolus identified. Aorta: No acute findings. No aortic aneurysm or dissection. Lungs: Consolidations and reticulonodular densities in the left lower lobe as well as reticulonodular densities in the lingula, concerning for pneumonia. Pleural space: Trace left pleural effusion. No pneumothorax. Heart: Unremarkable. No cardiomegaly. No significant pericardial effusion. No evidence of RV dysfunction. Mediastinum: Nonspecific mildly prominent mediastinal and left hilar lymph nodes. Bones/joints: No acute fracture. No dislocation. Soft tissues: Unremarkable. Lymph nodes: See above. IMPRESSION: 1. No pulmonary embolus identified. 2. No aortic aneurysm or dissection. 3. Consolidations and reticulonodular densities in the left lower lobe as well as reticulonodular densities in the lingula, concerning for pneumonia. 4. Trace left pleural effusion. Electronically signed by: Sd Small M.D. 10/20/23 19:27 PM
[2023-10-21 09:02] LABS: Hematocrit (blood only) 29.2 % (37.0-47.0); Hemoglobin 9.7 g/dl (12.0-16.0); Immature Granulocytes # (auto) 0.05 K/uL (0.01-0.20); Immature Granulocytes % (auto) 0.8 %; Lymphocytes % (auto) 12.6 %; Mean Corpuscular Hgb Conc 33.2 g/dL (32.0-36.0); Mean Corpuscular Volume 87.4 fL (80.0-100.0); Mean Platelet Volume 9.9 fL (9.4-12.4); Monocytes # (auto) 0.18 K/uL (0.11-0.59); Monocytes % (auto) 2.8 %; Neutrophils # (auto) 5.33 K/uL (1.40-6.50); Neutrophils % (auto) 83.8 %; Platelet Count 281 K/uL (130-400); RDW Coefficient of Variation 12.4 % (11.5-14.5); Red Blood Count 3.34 M/uL (4.20-5.40); White Blood Count 6.36 K/ul (4.8-10.8)
[2023-10-21 09:15] LABS: Est GFR (African American) 143.3 ml/min; Est GFR (Non-African American) 123.6 ml/min; Potassium 3.9 mmol/L (3.5-5.1)
[2023-10-21] MEDS: AZITHROMYCIN 250 MG TAB PO SCH (09:39)
[2023-10-21] MEDS: guaiFENesin 600 MG TABCR PO SCH (09:39)
[2023-10-21] MEDS: ENOXAPARIN INJ 40 MG/0.4 ML SYR SQ SCH (09:40)
--- NOTE | 2023-10-21 12:45 | Electrocardiogram Report ---
Test Reason : Blood Pressure : / mmHG Vent. Rate : 111 BPM Atrial Rate : 111 BPM P-R Int : 146 ms QRS Dur : 076 ms QT Int : 306 ms P-R-T Axes : 061 -05 008 degrees QTc Int : 416 ms Sinus tachycardia Possible Left atrial enlargement Nonspecific ST abnormality Borderline ECG No previous ECGs available Confirmed by German Delgado ([id number]) on 10/21/2023 12:45:04 PM Referred By: REFERRED SELF Confirmed By:Adams Delgado
--- NOTE | 2023-10-21 15:38 | Pulmonary Consultation ---
Date of Consultation October 21, 2023 Assessment & Plan (1) Multifocal pneumonia: (2) Sepsis: (3) Rhinovirus infection: (4) Engages in vaping: Plan CT chest 10/20/2023 personally reviewed: Dense consolidative process appreciated in the left lower lobe Tree-in-bud opacities in the lingula as well Minimal left hilar lymphadenopathy -- Multilobar pneumonia Procalcitonin negative Respiratory bio fire positive for entero-/rhinovirus as well as mycoplasma pneumonia Nasal MRSA negative -- Active vaping Advised to quit Plan: I will change antibiotics to levofloxacin to be used for 7 days, QTc 416 at the time of presentation I will add hypertonic saline nebulized with flutter valve to help get sputum cultures Case was discussed with pharmacy as well as primary team Please note the above document was generated using voice recognition software. It may contain grammatical, syntax or spelling errors.Any formal questions or concerns about the content, text or information contained within the body of this dictation should be directly addressed to the provider for clarification. History of Present Illness Attending Physician: More Dumont MD History of Present Illness 38-year-old female present to the hospital with complaints of fever and shortness of breath Past medical history: Anxiety/depression Pulmonary consulted for abnormal chest CT Patient's was in the room at the time of examination Patient recently traveled from [place] to [place] on the flight. She was complaining of runny nose and some sore throat around that time. Patient's family which includes 3 kids and were also having upper respiratory infection, all the family members got azithromycin and they did well the patient clinical condition deteriorated. Patient was saturating 93% on room air with respiratory rate in the mid teens. She does complain of cough but is not able to bring any phlegm up. Does complain of chest congestion. Has been complaining of chest pain if she takes deep breath on the left No dysuria. Did have diarrhea when she was given Augmentin to be used by the urgent care Positive subjective fever and chills. No headache, no blurry vision No nausea vomiting History of recurrent blood clots in sister Social history: Vaping on a regular basis, nicotine product, no illicit drug use. 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 No history of lung cancer in the family Allergies Allergy/AdvReac Type Severity Reaction Status Date / Time No Known Allergies Allergy Verified 07/07/24 11:10 Home Medications Medication Instructions Recorded Confirmed Type amoxicillin 875 mg-potassium 1 tab PO BID #20 tabs 10/16/23 10/16/23 Rx clavulanate 125 mg tablet sertraline 25 mg tablet (Zoloft) 25 mg PO DAILY 10/16/23 10/16/23 History azithromycin 250 mg tablet See Rx Instructions PO .COMPLEX #6 10/20/23 Rx tabs Patient History Social History (Updated 10/16/23 @ 11:11 by Bella Serrano LPN) Smoking Status: Former smoker Tobacco Type: E-cigarettes / Vaping Second Hand Exposure: No; Do You Dip or Chew Tobacco: No; Tobacco Cessation Education Requested by Patient: No Hx Alcohol Use: No Hx Substance Use: No Preferred Language: Citizen Of [place] Communication Ability: Effective Billet Driller Required: No Beliefs That Will Affect Care: None Current Living Situation: Spouse Other Information That Helps Us Care for You: No Feels Safe at Home: Yes Safety Concerns: Feels Safe At This Time Assistive Devices: None Review of Systems 2 Review of Systems: All systems reviewed & are unremarkable except as noted in HPI & below Physical Exam 2 Physical Exam: Constitutional: No acute distress HEENT: EOMI, PERRLA Respiratory system: Decreased entry on the left side, no wheeze, no rhonchi, positive crackles left lower lobe CVS: S1-S2 positive, no murmurs or gallops Abdomen: Soft, nontender, nondistended, positive bowel sounds x4 Extremities: +2 pulses bilaterally radialis/ dorsalis pedis, no cyanosis, no edema Neuro: Awake alert oriented x3 Psych: Normal mood and affect G/U: No Garcia Skin: no rashes, warm and dry Lymphatic: no cervical or axillary lymphadenopathy Results & Data Results & Data Vital Signs (Past 12 Hours) Vital Signs Temp Pulse Pulse Pulse Resp BP BP 10/21/23 07:30 36.8 C 54 L 18 98/65 L 10/21/23 07:03 87 20 10/21/23 03:32 36.3 C L 59 L 18 112/79 10/21/23 00:04 80 10/20/23 23:37 10/20/23 23:37 10/20/23 23:37 36.8 C 91 H 18 95/61 L 10/20/23 22:43 36.9 C 78 18 103/72 10/20/23 22:00 85 18 103/72 Pulse Ox O2 Del Method 10/21/23 07:30 94 Room Air 10/21/23 07:03 95 Room Air 10/21/23 03:32 93 Room Air 10/21/23 00:04 10/20/23 23:37 Room Air 10/20/23 23:37 Room Air 10/20/23 23:37 Room Air 10/20/23 22:43 93 Room Air 10/20/23 22:00 94 Room Air Laboratory Results 10/21/23 08:08 10/21/23 08:08 PG Care Time/CCT Total # of Minutes Spent Total Time Spent with Patient: Total time spent is greater than 50% in coordination of care (as documented) at patient's floor/unit and/or counseling patient: C[place] [address] INT INP/OBS CARE 3/75MIN Patient Type Established Diagnoses Multifocal pneumonia J18.9 Sepsis A41.9 Rhinovirus infection B34.8 Engages in vaping Z72.89
[2023-10-21] MEDS: levoFLOXacin/D5W 750 MG/150 ML BAG IV SCH (16:33)
[2023-10-21] MEDS: SODIUM CHLOR 7% 4 ML NEB NEB SCH (19:21)
[2023-10-21] MEDS: CALCIUM CARBONATE 500 MG CHEWABLE TAB PO ONE (20:54)
[2023-10-21] MEDS: BENZONATATE 100 MG CAPSULE PO PRN (20:55)
[2023-10-22] MEDS: ALBUTEROL 0.5% NEB SOLN 2.5 MG/0.5 ML VIAL NEB PRN (01:05)
[2023-10-22] MEDS: MELATONIN 3 MG TAB PO PRN (01:20)
[2023-10-22 06:27] LABS: Basophils # (auto) 0.03 K/uL (0.00-0.20); Basophils % (auto) 0.2 %; Eosinophils # (auto) 0.01 K/uL (0.00-0.50); Eosinophils % (auto) 0.1 %; Hematocrit (blood only) 30.2 % (37.0-47.0); Hemoglobin 9.8 g/dl (12.0-16.0); Immature Granulocytes # (auto) 0.19 K/uL (0.01-0.20); Immature Granulocytes % (auto) 1.4 %; Lymphocytes # (auto) 2.12 K/uL (1.20-3.40); Lymphocytes % (auto) 15.9 %; Mean Corpuscular Hemoglobin 28.8 pg (25.0-34.0); Mean Corpuscular Hgb Conc 32.5 g/dL (32.0-36.0); Mean Corpuscular Volume 88.8 fL (80.0-100.0); Mean Platelet Volume 9.7 fL (9.4-12.4); Monocytes # (auto) 0.68 K/uL (0.11-0.59); Monocytes % (auto) 5.1 %; Neutrophils % (auto) 77.3 %; Platelet Count 328 K/uL (130-400); RDW Coefficient of Variation 12.4 % (11.5-14.5); RDW Standard Deviation 40.2 fL (36.4-46.3); White Blood Count 13.33 K/ul (4.8-10.8)
[2023-10-22 06:40] LABS: BUN Creatinine Ratio 28.1 (10-20); Calcium 8.4 mg/dl (8.6-10.3); Creatinine Clr Calc Pharmacy 137.5 ml/min; Est GFR (African American) 137.3 ml/min; Est GFR (Non-African American) 118.4 ml/min; Potassium 3.8 mmol/L (3.5-5.1)
--- NOTE | 2023-10-22 07:15 | XRay Report ---
SINGLE VIEW CHEST CLINICAL HISTORY: Follow-up pneumonia FINDINGS: An AP, portable, upright chest radiograph is compared to chest x-ray and chest CT dated 10/09. The cardiomediastinal silhouette is unremarkable. Again seen is a left pleural effusion with left basilar consolidation. The right lung appears clear. No pneumothorax is seen. The bony thorax is grossly intact. IMPRESSION: A left pleural effusion and left basilar consolidation is similar to previous and typical for pneumonia. Continued radiographic follow-up to resolution is recommended. ACT 112: Negative or not required by law. Electronically signed by: Patrick Carroll M.D. 10/22/2023 7:13 AM
[2023-10-22 07:53] LABS: Folate (Folic Acid),Ser orPlas 7.1 ng/ml (>5.38)
--- NOTE | 2023-10-22 11:47 | Pulmonology Progress Note ---
Date of Service October 22, 2023 Assessment & Plan (1) Multifocal pneumonia: (2) Sepsis: (3) Rhinovirus infection: (4) Engages in vaping: Plan CT chest 10/20/2023 personally reviewed: Dense consolidative process appreciated in the left lower lobe Tree-in-bud opacities in the lingula as well Minimal left hilar lymphadenopathy -- Multilobar pneumonia Procalcitonin negative Respiratory bio fire positive for entero-/rhinovirus as well as mycoplasma pneumonia Nasal MRSA negative -- Active vaping Advised to quit Plan: Continue with levofloxacin for 7 days Continue with hypertonic saline nebulized with flutter valve to help get sputum cultures Recommend the patient to move around in the room Case was discussed with primary team Please note the above document was generated using voice recognition software. It may contain grammatical, syntax or spelling errors.Any formal questions or concerns about the content, text or information contained within the body of this dictation should be directly addressed to the provider for clarification. Admission and Anticipated Discharge Date Admission Date: October 20, 2023 Subjective Patient seen and examined at bedside. No acute distress, no AutoSense overnight She states that she is feeling better compared to yesterday. She was saturating 96% on room air She is bringing up phlegm now. No hemoptysis Chest pain has decreased in intensity No nausea vomiting, fair appetite Review of Systems 2 Review of Systems: All systems reviewed & are unremarkable except as noted in Subjective Physical Exam 2 Physical Exam: Constitutional: No acute distress HEENT: EOMI, PERRLA Respiratory system: Decreased entry on the left side, no wheeze, no rhonchi, positive crackles left lower lobe CVS: S1-S2 positive, no murmurs or gallops Abdomen: Soft, nontender, nondistended, positive bowel sounds x4 Extremities: +2 pulses bilaterally radialis/ dorsalis pedis, no cyanosis, no edema Neuro: Awake alert oriented x3 Psych: Normal mood and affect G/U: No Garcia Skin: no rashes, warm and dry Lymphatic: no cervical or axillary lymphadenopathy Results & Data Results & Data Vital Signs (Past 12 Hours) Vital Signs Temp Pulse Pulse Resp BP Pulse Ox O2 Del Method 10/22/23 08:49 36.8 C 52 L 16 102/66 97 Room Air 10/22/23 07:45 Room Air 07/13/24 07:20 52 L 16 96 Room Air 10/22/23 07:00 50 L 10/22/23 03:18 36.6 C 68 18 102/70 93 Room Air 10/22/23 01:05 70 18 93 Room Air Laboratory Results 10/22/23 05:52 10/22/23 05:52 PG Care Time/CCT Total # of Minutes Spent Total Time Spent with Patient: Total time spent is greater than 50% in coordination of care (as documented) at patient's floor/unit and/or counseling patient: Coding Level of Care Code 37952 SUB INP/OBS CARE 2/35MIN Diagnoses Multifocal pneumonia J18.9 Sepsis A41.9 Rhinovirus infection B34.8 Engages in vaping Z72.89
--- NOTE | 2023-10-22 13:44 | Procedure Note ---
Procedure Note Date of Service October 22, 2023 Note Bedside Ultrasound: Lung: Right:-No pleural effusion, a lines anteriorly and posteriorly Left:-Minimal left-sided pleural effusion with consolidative process of the left lower lobe Please note the above document was generated using voice recognition software. It may contain grammatical, syntax or spelling errors.Any formal questions or concerns about the content, text or information contained within the body of this dictation should be directly addressed to the provider for clarification. Coding CPT Codes Pulmonary/Thoracic - Pulmonary and Thoracic: 80904 US, Chest, real time with imaging documentation ([id number]) [facility] [place] Procedure Codes (Charges) Pulmonary/Thoracic Procedure 1: Pulmonary and Thoracic: 97368 US, Chest, real time with imaging documentation
--- NOTE | 2023-10-22 14:45 | Hospitalist Progress Note ---
Date of Service October 22, 2023 Assessment & Plan (1) Sepsis: Plan Pt is a 38yoF with PMhx significant for mood disorder, chronic anemia (baseline hemoglobin of 11 as per patient) admitted with community acquired pneumonia. Sepsis, POA Pneumonia due to Mycoplasma pneumoniae Pt tachycardic and febrile on admission, infectious source pulmonary lactate and procal wnl No increased oxygen requirement Hypotensive Chest XRAY noting LLL pneumonia Chest CTA noting consolidation in the lingula and LLL with left pleural effusion Serology positive for Mycoplasma pneumoniae and enterovirus/rhinovirus Blood Cx x 2 sets NGTD Sputum cx pending Was started on rocephin and azithromycin, transitioned to rocephin with cipro per pulmonology Pulmonology consulted, appreciate recs -changed antibiotics to levofloxacin to be used for 7 days, QTc 416 at the time of presentation -added hypertonic saline nebulized with flutter valve to help get sputum cultures -stop vaping Continue to monitor Hypokalemia K 3.3 on admission Replete as needed Elevated D-dimer D dimer elevated on admission CTA chest with no PE but notes pneumonia chronic anemia Hgb 11.3 iron levels, B12 and folate wnl mood disorder stable patient only takes medication as needed Diet: regular DVT prophylaxis: Lovenox subcu Dispo: Home once medically stable Admission and Anticipated Discharge Date Admission Date: October 20, 2023 Physical Exam Physical Exam: General: Alert, oriented. No acute distress Skin: No noted rashes or bruises Psych: Appropriate mood and affect Neuro: No gross deficits HEENT: NC/AT CV: RRR Resp: Breath sounds decreased on the left, no increased effort of breathing. Abdomen:Soft, nontender Extremities: No edema in lower extremities bilaterally. Results & Data Results & Data Vital Signs (Past 12 Hours) Vital Signs Temp Pulse Pulse Resp BP BP Pulse Ox 10/22/23 13:50 80 10/22/23 12:25 62 16 96 10/22/23 12:01 36.7 C 55 L 16 103/67 96 10/22/23 08:49 36.8 C 52 L 16 102/66 97 10/22/23 07:45 10/22/23 07:20 52 L 16 96 10/22/23 07:00 50 L 10/22/23 03:18 36.6 C 68 18 102/70 93 O2 Del Method 10/22/23 13:50 10/22/23 12:25 Room Air 10/22/23 12:01 Room Air 10/22/23 08:49 Room Air 10/22/23 07:45 Room Air 10/22/23 07:20 Room Air 10/22/23 07:00 10/22/23 03:18 Room Air
[2023-10-22] MEDS: CALCIUM CARBONATE 500 MG CHEWABLE TAB PO PRN (20:54)
[2023-10-23 07:11] LABS: Basophils # (auto) 0.07 K/uL (0.00-0.20); Basophils % (auto) 0.8 %; Eosinophils # (auto) 0.09 K/uL (0.00-0.50); Hematocrit (blood only) 32.7 % (37.0-47.0); Hemoglobin 10.6 g/dl (12.0-16.0); Immature Granulocytes # (auto) 0.32 K/uL (0.01-0.20); Immature Granulocytes % (auto) 3.5 %; Lymphocytes # (auto) 2.27 K/uL (1.20-3.40); Lymphocytes % (auto) 24.7 %; Mean Corpuscular Hemoglobin 28.7 pg (25.0-34.0); Mean Corpuscular Hgb Conc 32.4 g/dL (32.0-36.0); Mean Corpuscular Volume 88.6 fL (80.0-100.0); Mean Platelet Volume 9.6 fL (9.4-12.4); Monocytes # (auto) 0.61 K/uL (0.11-0.59); Monocytes % (auto) 6.6 %; Neutrophils # (auto) 5.84 K/uL (1.40-6.50); Neutrophils % (auto) 63.4 %; Nucleated RBC # (auto) 0.02 K/uL (0.00-0.12); Nucleated RBC % (auto) 0.2 %; Platelet Count 384 K/uL (130-400); RDW Coefficient of Variation 12.2 % (11.5-14.5); RDW Standard Deviation 39.8 fL (36.4-46.3); Red Blood Count 3.69 M/uL (4.20-5.40)
[2023-10-23 07:45] LABS: BUN Creatinine Ratio 20.3 (10-20); Calcium 8.4 mg/dl (8.6-10.3); Creatinine Clr Calc Pharmacy 113.6 ml/min; Est GFR (African American) 128.9 ml/min; Est GFR (Non-African American) 111.2 ml/min; Potassium 3.6 mmol/L (3.5-5.1)
[2023-10-23 10:01] LABS: Appearance Urine Clear (Clear); Bilirubin Urine Negative (Negative); Blood Urine Negative (Negative); Color Urine Yellow; Glucose Urine UA Negative (Negative); Ketones Urine Negative (Negative); Leukocyte Esterase Urine Negative (Negative); Nitrite Urine Negative (Negative); Protein Urine Negative (Negative); Specific Gravity Urine 1.007 (1.000-1.030); Urobilinogen Urine Negative (Negative); pH Urine 5.5 (4.5-7.5)
--- NOTE | 2023-10-23 10:02 | Pulmonology Progress Note ---
Date of Service October 23, 2023 Assessment & Plan (1) Multifocal pneumonia: (2) Sepsis: (3) Rhinovirus infection: (4) Engages in vaping: Plan CT chest 10/20/2023 personally reviewed: Dense consolidative process appreciated in the left lower lobe Tree-in-bud opacities in the lingula as well Minimal left hilar lymphadenopathy -- Multilobar pneumonia Procalcitonin negative Respiratory bio fire positive for entero-/rhinovirus as well as mycoplasma pneumonia Nasal MRSA negative -- Active vaping Advised to quit Plan: Continue with levofloxacin for total of 7 days. Okay to change it to p.o. Follow sputum culture Case was discussed with primary team as well as RN at bedside Recommending repeating a CT chest without contrast in 6-8 weeks No further recommendation from pulmonary perspective, will sign off Please call directly with any questions Please note the above document was generated using voice recognition software. It may contain grammatical, syntax or spelling errors.Any formal questions or concerns about the content, text or information contained within the body of this dictation should be directly addressed to the provider for clarification. Admission and Anticipated Discharge Date Admission Date: October 20, 2023 Subjective Patient seen and examined at bedside. No acute distress, notable hematoma She was saturating 97% on room air. Denied any headache, no nausea vomiting Still complaining of generalized lethargy which is improving. Pleuritic chest pain is also significantly improved No headache or blurry vision Review of Systems 2 Review of Systems: All systems reviewed & are unremarkable except as noted in Subjective Physical Exam 2 Physical Exam: Constitutional: No acute distress HEENT: EOMI, PERRLA Respiratory system: Decreased entry on the left side, no wheeze, no rhonchi, positive crackles left lower lobe CVS: S1-S2 positive, no murmurs or gallops Abdomen: Soft, nontender, nondistended, positive bowel sounds x4 Extremities: +2 pulses bilaterally radialis/ dorsalis pedis, no cyanosis, no edema Neuro: Awake alert oriented x3 Psych: Normal mood and affect G/U: No Garcia Skin: no rashes, warm and dry Lymphatic: no cervical or axillary lymphadenopathy Results & Data Results & Data Vital Signs (Past 12 Hours) Vital Signs Temp Pulse Pulse Resp BP BP Pulse Ox 10/23/23 07:50 36.8 C 70 18 108/72 95 10/23/23 07:40 10/23/23 07:00 56 L 10/23/23 06:46 59 L 18 95 10/23/23 02:58 36.7 C 66 16 111/76 99 10/22/23 23:19 10/22/23 22:34 36.8 C 66 18 111/78 99 Pulse Ox O2 Del Method O2 Del Method 10/23/23 07:50 Room Air 10/23/23 07:40 Room Air 10/23/23 07:00 10/23/23 06:46 Room Air 10/23/23 02:58 Room Air 10/22/23 23:19 95 Room Air 10/22/23 22:34 Room Air Laboratory Results 10/23/23 06:23 10/23/23 06:23 PG Care Time/CCT Total # of Minutes Spent Total Time Spent with Patient: Total time spent is greater than 50% in coordination of care (as documented) at patient's floor/unit and/or counseling patient: Coding Level of Care Code 45332 SUB INP/OBS CARE 2/35MIN Diagnoses Multifocal pneumonia J18.9 Sepsis A41.9 Rhinovirus infection B34.8 Engages in vaping Z72.89
--- NOTE | 2023-10-23 12:42 | Discharge Summary ---
Discharge Summary Date of Service October 23, 2023 Principal Dx & Hospital Course #1 = Principal Diagnosis (1) Sepsis: Plan Pt is a 38yoF with PMhx significant for mood disorder, chronic anemia (baseline hemoglobin of 11 as per patient), plaque psoriasis on skyrizi admitted with community acquired pneumonia. Sepsis, POA Pneumonia due to Mycoplasma pneumoniae Pt tachycardic and febrile on admission, infectious source pulmonary lactate and procal wnl No increased oxygen requirement Hypotensive Chest XRAY noting LLL pneumonia Chest CTA noting consolidation in the lingula and LLL with left pleural effusion Serology positive for Mycoplasma pneumoniae and enterovirus/rhinovirus Blood Cx x 2 sets NGTD Sputum cx growing normal oral carson, no significant growth to date Was started on rocephin and azithromycin, transitioned to rocephin with levofloxacin per pulmonology Likely in immunocompromised setting, pt on skyrizi for Hx of plaque psoriasis Pulmonology consulted, appreciate recs. On day of discharge recommended the following: -Continue with levofloxacin for total of 7 days. Okay to change it to p.o. -Follow sputum culture -Recommending repeating a CT chest without contrast in 6-8 weeks -stop vaping Pt discharged with an additional 5 days of po levofloxacin 750mg daily. Close PCP followup as above after discharge Left Pleural Effusion Noted on imaging, trace Per radiology, "Continued radiographic follow-up to resolution is recommended." Please repeat imaging as above to ensure resolution. Hypokalemia K 3.3 on admission Repleted as needed Elevated D-dimer D dimer elevated on admission CTA chest with no PE but notes pneumonia chronic anemia Hgb 11.3 iron levels, B12 and folate wnl mood disorder stable patient only takes medication as needed Plaque Psoriasis On skyrizi q8w PCP followup Notes For Next Care Provider Per pulmonology: -Recommending repeating a CT chest without contrast in 6-8 weeks -Stop vaping Medication Changes From Visit Levofloxacin 750mg daily for 5 more days tessalon pearles 100mg TID prn for cough Mucinex [id number] q12hr albuterol inhaler prn for SOB/wheezing Admission HPI Per Admitting Provider History obtained from patient and records. Medical history significant for mood disorder, chronic anemia (baseline hemoglobin of 11 as per patient). Patient is a resident of [place], [place] who has been in town since last week to visit her 's local family. Patient started feeling sick after leaving [place] about 10 days ago. Some sinus congestion later followed by dry cough symptoms. Admits to occasional coughing with meals/water intake. Possible sick contacts at home. Patient's children 3 children contracted walking pneumonia before leaving [place] for which azithromycin was prescribed by the direct care counselor. Patient seen at [facility] urgent care clinic last week. COVID and flu swabs were negative. Augmentin course prescribed for suspected sinobronchitis. Worsening cough and symptoms despite compliance with antibiotic Rx. Poor appetite. Azithromycin and neb treatment administered at the ER. 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 No acute distress Skin: No noted rashes or bruises Psych: Appropriate mood and affect Neuro: No gross deficits HEENT: NC/AT CV: RRR Resp: Breath sounds decreased on the left, no increased effort of breathing. Abdomen:Soft, nontender Extremities: No edema in lower extremities bilaterally. Updated Medication List Medication Instructions Recorded Confirmed Type sertraline 25 mg tablet (Zoloft) 25 mg PO DAILY 10/16/23 10/22/23 History acetaminophen 500 mg tablet 500 mg PO Q6H PRN Pain 10/22/23 10/22/23 History ibuprofen 200 mg tablet (Advil) 200 mg PO Q6H PRN Pain 10/22/23 10/22/23 History risankizumab-rzaa 150 mg/mL 150 mg subcut Q8WK 10/22/23 10/22/23 History subcutaneous pen injector (Skyrizi) albuterol sulfate 90 mcg/actuation 2 inh inhalation Q8H PRN shortness 10/23/23 Rx aerosol inhaler of breath or wheezing #6.7 grams benzonatate 100 mg capsule 100 mg PO TID PRN cough #30 caps 10/23/23 Rx guaifenesin 600 mg tablet, 1,200 mg (2 x 600 mg) PO Q12 #60 10/23/23 Rx extended release 12 hr (Mucinex) tabs levofloxacin 750 mg tablet 750 mg PO DAILY #5 tabs 10/23/23 Rx Hospital Stay Data Consultations 10/20/23 20:13 ED Decision to Admit Stat 10/21/23 09:26 Consult Pulmonology Routine Diagnostic Imagining Performed 10/20/23 18:31 CT angio chest PE protocol Stat 10/22/23 11:47 US point of care ultrasound Urgent Chest CTA 10/20/23 18:31 Exam(s): CTA CHEST IV Amt: 119ml optiray 320 EXAM: CT Angiography Chest With Intravenous Contrast CLINICAL HISTORY: Reason for exam: tachy, hypoxic, PNA, elevated dimer, r/o PE. TECHNIQUE: Axial computed tomographic angiography images of the chest with intravenous contrast. CTDI is 21.58 mGy and DLP is 605.2 mGy-cm. Automated exposure control was utilized for the study. A dose lowering technique was utilized adhering to the principles of ALARA. MIP reconstructed images were created and reviewed. COMPARISON: None FINDINGS: Pulmonary arteries: Unremarkable. No pulmonary embolus identified. Aorta: No acute findings. No aortic aneurysm or dissection. Lungs: Consolidations and reticulonodular densities in the left lower lobe as well as reticulonodular densities in the lingula, concerning for pneumonia. Pleural space: Trace left pleural effusion. No pneumothorax. Heart: Unremarkable. No cardiomegaly. No significant pericardial effusion. No evidence of RV dysfunction. Mediastinum: Nonspecific mildly prominent mediastinal and left hilar lymph nodes. Bones/joints: No acute fracture. No dislocation. Soft tissues: Unremarkable. Lymph nodes: See above. IMPRESSION: 1. No pulmonary embolus identified. 2. No aortic aneurysm or dissection. 3. Consolidations and reticulonodular densities in the left lower lobe as well as reticulonodular densities in the lingula, concerning for pneumonia. 4. Trace left pleural effusion. Electronically signed by: Sd Small M.D. 10/20/23 19:27 PM Chest X-Ray 10/22/23 07:00 SINGLE VIEW CHEST CLINICAL HISTORY: Follow-up pneumonia FINDINGS: An AP, portable, upright chest radiograph is compared to chest x-ray and chest CT dated 10/20/2023. The cardiomediastinal silhouette is unremarkable. Again seen is a left pleural effusion with left basilar consolidation. The right lung appears clear. No pneumothorax is seen. The bony thorax is grossly intact. IMPRESSION: A left pleural effusion and left basilar consolidation is similar to previous and typical for pneumonia. Continued radiographic follow-up to resolution is recommended. ACT 112: Negative or not required by law. Electronically signed by: Patrick Carroll M.D. 10/22/2023 7:13 AM Pending Results Patient Have Any Pending Studies at Discharge: No Discharge Instructions Given to Patient (Per Discharging Provider) Candida, We are discharging you home. The telephone exchange operator recommended 5 more days of the antibiotic levofloxacin 750mg daily. Please also continue with as needed mucinex, tessalon and an albuterol inhaler. He recommends repeating a CT of your chest in 6-8 weeks and that you stop vaping. Please keep close follow up with your primary care provider after discharge. Please do not hesitate to come back to the emergency room if your symptoms worsen or return. It was a pleasure taking care of you while you were here. Total Time Total Time Spent Total Time Spent (In Minutes): 75
== END 2023-10-23 14:46 | disposition home or self-care (01) | DRG 871 ==
LOC: ED 15:02 → 2W 21:36